=== PATIENT | female | born 1965 | race Caucasian/White ===

== ENCOUNTER 2017-11-10 06:56 | Day surgery (SDC) | payer BC, MEDICARE ==
[~2017-11-10 06:56] MED LIST: Lactated Ringers 1,000 ML IV SCH; Lidocaine 1%/Sod Bicarbonate in NS 8.4% 1 ML Syringe IDERM PRN; Sodium Chloride 0.9% 10 ML Syringe FLUSH PRN
[2017-11-10] MEDS ORDERED: Lactated Ringers 0 ML ONE (07:24)
[2017-11-10] MEDS ORDERED: Propofol 200 MG/20 ML SDV ONE (07:24)
[2017-11-10] MEDS ORDERED: Ondansetron 4 MG/2 ML SDV ONE (07:24)
[2017-11-10] MEDS ORDERED: ceFAZolin 1 GM Vial ONE (07:24)
[2017-11-10] MEDS ORDERED: fentaNYL 250 MCG/5 ML SDV ONE (07:25)
[2017-11-10] MEDS ORDERED: Lidocaine 1% 4 ML ONE (07:25)
[2017-11-10] MEDS ORDERED: Dexamethasone 4 MG/ML 5 ML MDV ONE (07:25)
[2017-11-10] MEDS ORDERED: Midazolam 1 MG/ML 2 ML SDV ONE (07:25)
[2017-11-10] MEDS ORDERED: Bupivacaine 0.25% 10 ML SDV ONE (07:34)
--- NOTE | 2017-11-10 07:39 | PCM.PREANE ---
Preanesthetic Assessment - Anesthesia/Transfusion/Family Hx Anesthesia History: Prior Anesthesia Without Reaction Family History of Anesthesia Reaction: No - Review of Systems General: No Symptoms Pulmonary: Cough (Occasional, nonproductive) Cardiovascular: No Symptoms Gastrointestinal: No Symptoms Neurological: Other (Back pain chronic.) Other: Reports: Thyroid Problems, Anxiety - Physical Assessment NPO Status Date: 11/09/17 NPO Status Time: 18:30 Pulse: 92 O2 Sat by Pulse Oximetry: 95 Respiratory Rate: 16 Blood Pressure: 118/90 Temperature: 36.3 C Weight: 91.626 kg ASA Class: 2 Mental Status: Alert & Oriented x3 Airway Class: Mallampati = 2 Dentition: Reports: Normal Dentition, Caries Thyro-Mental Finger Breadths: 3 Mouth Opening Finger Breadths: 3 ROM/Head Extension: Full Lungs: Clear to Auscultation, Normal Respiratory Effort Cardiovascular: Regular Rate, Regular Rhythm - Imaging/EKG Impressions: SR 95bpm - Allergies Allergies/Adverse Reactions: Allergies Allergy/AdvReac Type Severity Reaction Status Date / Time latex Allergy Rash Verified 11/09/17 16:42 - Acknowledgements Anesthesia Type Planned: General Anesthesia Pt an Appropriate Candidate for the Planned Anesthesia: Yes Alternatives and Risks of Anesthesia Discussed w Pt/Guardian: Yes Pt/Guardian Understands and Agrees with Anesthesia Plan: Yes PreAnesthesia Questionnaire HEENT History: Reports: Impaired Vision Other HEENT History: bruxism, wears glasses, dysphagia Cardiovascular History: Reports: High Cholesterol, SOB on Exertion Other Respiratory History: Moderate Snoring Gastrointestinal History: Reports: Chronic Constipation, GERD, Irritable Bowel Syndrome, Other (See Below) Other Gastrointestinal History: gastroparesis, dysphagia Genitourinary History: Reports: None LAWYER CRIMINAL History: Reports: None, Polycystic Ovaries Musculoskeletal History: Reports: Back Pain, Chronic, Osteoarthritis, Other ( See Below) Other Musculoskeletal History: lumbar strain and tear, dupytrens contracture Neurological History: Other Neuro History: Upper extrem. tremors Psychiatric History: Reports: Anxiety, Panic Attack Other Psychiatric History: Opioid Contract X 6 yrs. - Chronic Pain Patient Endocrine/Metabolic History: Reports: Hypothyroidism, Obesity/BMI 30+ Hematologic History: Reports: None Immunologic History: Reports: None Oncologic (Cancer) History: Reports: Uterine Dermatologic History: Reports: None - Past Surgical History Head Surgeries/Procedures: Reports: None HEENT Surgical History: Reports: Eye Surgery, Naso-Sinus Surgery Cardiovascular Surgical History: Reports: None Respiratory Surgical History: Reports: None GI Surgical History: Reports: EGD Female Surgical History: Reports: Hysterectomy, Oophorectomy Male Surgical History: Reports: None Endocrine Surgical History: Reports: None Neurological Surgical History: Reports: None Musculoskeletal Surgical History: Reports: None Dermatological Surgical History: Reports: None - SUBSTANCE USE Smoking Status *Q: Former Smoker Tobacco Use Within Last Twelve Months: Cigarettes Second Hand Smoke Exposure: Yes Days Per Week of Alcohol Use: 0 Number of Drinks Per Day: 1 Total Drinks Per Week: 0 Recreational Drug Use History: No - HOME MEDS Home Medications: Home Meds Simvastatin [Zocor] 20 mg PO BEDTIME 12/18/13 [History] traMADol HCl [Ultram] 1 - 2 tab PO Q6H PRN 12/18/13 [History] Metoclopramide HCl [Reglan] 5 mg PO BID 12/25/13 [History] Aspirin 81 mg PO DAILY 02/23/16 [History] Cyclobenzaprine [Flexeril] 10 mg PO Q8H PRN 02/23/16 [History] PARoxetine [Paxil] 20 mg PO DAILY 02/23/16 [History] busPIRone [Buspar] 5 mg PO DAILY 02/23/16 [History] diphenhydrAMINE HCl [Diphenhydramine HCl] 50 mg PO BEDTIME 02/23/16 [History] Esomeprazole Magnesium [Nexium] 40 mg PO DAILY 03/23/16 [History] Levothyroxine 125 mcg PO DAILY 06/22/16 [History] Cholecalciferol (Vitamin D3) [Vitamin D3] 2,000 unit PO DAILY 11/09/17 [History] Chrom Brooke/Brindal Vora [Garcinia Cambogia Tablet] 1 tab PO DAILY 11/09/17 [ History] Docusate Sodium [Stool Softener] 100 mg PO DAILY 11/09/17 [History] Multivitamin [Poly-Vitamin] 1 tab PO DAILY 11/09/17 [History] Polyethylene Glycol 3350 [MiraLAX] 17 g PO DAILY 11/09/17 [History] Vitamin E 400 unit PO DAILY 11/09/17 [History] - CURRENT (IN HOUSE) MEDS Current Meds: Current Medications Lactated Ringer's (Ringers, Lactated) 1,000 mls @ 125 mls/hr IV ASDIRECTED DAMIAN Stop: 11/10/17 23:00 Lidocaine/Sodium Bicarbonate (Buffered Lidocaine 1% In Ns 8.4%) 0.25 ml IDERM ONETIME PRN PRN Reason: Prior to IV Start Stop: 11/10/17 18:00 Sodium Chloride (Saline Flush) 10 ml FLUSH ASDIRECTED PRN PRN Reason: Keep Vein Open Stop: 11/10/17 18:00 Discontinued Medications Bupivacaine HCl (Sensorcaine-Mpf 0.25%) Confirm Administered Dose 10 ml .ROUTE .STK-MED ONE Stop: 11/10/17 07:35 Cefazolin Sodium (Ancef) Confirm Administered Dose 2 gm .ROUTE .STK-MED ONE Stop: 11/10/17 07:25 Dexamethasone (Dexamethasone) Confirm Administered Dose 20 mg .ROUTE .STK-MED ONE Stop: 11/10/17 07:26 Fentanyl (Sublimaze) Confirm Administered Dose 250 mcg .ROUTE .STK-MED ONE Stop: 11/10/17 07:26 Lactated Ringer's (Ringers, Lactated) Confirm Administered Dose 1,000 mls @ as directed .ROUTE .STK-MED ONE Stop: 11/10/17 07:25 Lidocaine HCl (Xylocaine-Mpf 1%) Confirm Administered Dose 4 mls @ as directed .ROUTE .STK-MED ONE Stop: 11/10/17 07:26 Midazolam HCl (Versed 1 Mg/Ml) Confirm Administered Dose 2 mg .ROUTE .STK-MED ONE Stop: 11/10/17 07:26 Ondansetron HCl (Zofran) Confirm Administered Dose 4 mg .ROUTE .STK-MED ONE Stop: 11/10/17 07:25 Propofol (Diprivan 20 Ml) Confirm Administered Dose 400 mg .ROUTE .STK-MED ONE Stop: 11/10/17 07:25
[2017-11-10] MEDS ORDERED: Metoclopramide 10 MG/2 ML SDV ONE (07:55)
[2017-11-10] MEDS ORDERED: diphenhydrAMINE 50 MG/ML SDV IVPUSH PRN (09:19)
[2017-11-10] MEDS ORDERED: fentaNYL 100 MCG/2 ML SDV IVPUSH PRN (09:19)
[2017-11-10] MEDS ORDERED: Ondansetron 4 MG/2 ML SDV IVPUSH PRN (09:19)
[2017-11-10] MEDS ORDERED: HYDROmorphone 0.5 MG/0.5 ML Syringe ONE (09:24)
[2017-11-10] MEDS ORDERED: Ketorolac 30 MG/ML SDV ONE (09:33)
--- NOTE | 2017-11-10 09:45 | PCM.POSTAN ---
POST ANESTHESIA ASSESSMENT - MENTAL STATUS Mental Status: Somnolent - VITAL SIGNS Pulse Rate: 110 SaO2: 96 Resp Rate: 9 Blood Pressure: 109/66 Temperature: 36.4 C - RESPIRATORY Respiratory Status: Respiratory Rate WNL, Airway Patent, O2 Saturation Stable, Supplemental Oxygen - CARDIOVASCULAR CV Status: Pulse Rate WNL, Blood Pressure Stable - GASTROINTESTINAL GI Status: No Symptoms - PAIN Pain Score: 0 - POST OP HYDRATION Hydration Status: Adequate & Stable
[2017-11-10 11:21] VITALS: BP 108/62
--- NOTE | 2017-11-10 12:29 | PCM48HPAN ---
Post Anesthesia Note - EVALUATION WITHIN 48HRS OF ANESTHETIC Vital Signs in Normal Range: Yes Patient Participated in Evaluation: Yes Respiratory Function Stable: Yes Airway Patent: Yes Cardiovascular Function Stable: Yes Hydration Status Stable: Yes Pain Control Satisfactory: Yes Nausea and Vomiting Control Satisfactory: Yes Mental Status Recovered: Yes
--- NOTE | 2017-11-10 17:48 | OR ---
DATE OF OPERATION: 11/10/2017 SURGEON: Fransico Jorge MD PREOPERATIVE DIAGNOSIS: Right-hand palmar fibromatosis, Dupuytren's disease. POSTOPERATIVE DIAGNOSIS: Right-hand palmar fibromatosis, Dupuytren's disease. OPERATION PERFORMED: Right-hand subtotal fasciectomy. DIRECTOR OF VOLUNTEER SERVICES: . INDICATION: The patient is a pleasant 52-year-old female with symptomatic palmar fibromatosis of the right hand and causing pain and slight contracture of the MP joint. We discussed both conservative as well as surgical treatment. The patient verbalized understanding and wished to proceed with surgery. DESCRIPTION OF PROCEDURE: The patient was brought to the operating room, underwent general anesthetic. Right upper extremity was prepped and draped in standard orthopedic fashion. Surgical pause was performed identifying the appropriate patient and appropriate extremity to be operated upon. Preoperative antibiotics given. A Syed style incision was made over the proximal aspect of the ring finger. Sharp dissection was carried through skin and subcutaneous tissue. Hemostasis was obtained. Dissected proximally to Delvalle's cardinal line and identified the junction between the normal palmar fascia and diseased fascia. Primarily involved the ring finger but did a transversal arch of the long finger. We identified the neurovascular bundle, radial and on to the ring finger. We then divided the fascia proximally and released the anterior-posterior fibers all the way down to the level of the MP joint. The entire cord was removed completely. We evaluated and irrigated the ulnar and radial aspect of the incision to make sure there was no additional disease. We irrigated the wounds thoroughly. Closed the skin with 5-0 nylon. She was placed in a soft dressing and brought to recovery in satisfactory condition. PLAN: We will see her back in 10 to 12 days. She does have smoking history. If the wound does not look like it heals, we will leave the Surgicel now for 14 days . ANESTHESIA: ESTIMATED BLOOD LOSS: MMODAL /[id number]
== END 2017-11-10 11:20 | disposition home or self-care (01) ==
LOC: JD.SDS 06:56
PROVIDERS: ATTEND Orthopaedic Surgery
DX: M72.0 Palmar fascial fibromatosis [Dupuytren] (principal); E78.5 Hyperlipidemia, unspecified; E03.9 Hypothyroidism, unspecified; F41.9 Anxiety disorder, unspecified; G89.29 Other chronic pain; M54.9 Dorsalgia, unspecified; K21.9 Gastro-esophageal reflux disease without esophagitis; E66.9 Obesity, unspecified; Z87.891 Personal history of nicotine dependence; Z91.040 Latex allergy status; Z79.82 Long term (current) use of aspirin; Z79.899 Other long term (current) drug therapy; Z68.38 Body mass index [BMI] 38.0-38.9, adult
CPT/HCPCS: 26123; 87641; 93005; J0690; J1100; J1170; J1885; J2250; J2405; J2765; J3010; J7120; J2704

== ENCOUNTER 2018-08-03 12:20 | Emergency (ER) | payer BC, MEDICARE ==
--- NOTE | 2018-08-03 14:24 | EDM.PDOC ---
ED HPI GENERAL MEDICAL PROBLEM - General Chief Complaint: Lower Extremity Injury/Pain Stated Complaint: RIGHT ANKLE INJURY Time Seen by Provider: 08/03/18 13:27 Source of Information: Reports: Patient, RN Notes Reviewed - History of Present Illness INITIAL COMMENTS - FREE TEXT/NARRATIVE: 53-year-old female slipped on ice suffered inversion injury right ankle. She heard a pop. She has severe pain with any attempt at weightbearing. No other pain or injury. The pain is primarily the lateral aspect of the ankle. Right Ankle Pain Score (Numeric/FACES): 2 - Related Data Allergies Allergy/AdvReac Type Severity Reaction Status Date / Time latex Allergy Rash Verified 08/03/18 13:21 Home Meds: Home Meds Simvastatin [Zocor] 20 mg PO BEDTIME 12/18/13 [History] traMADol HCl [Ultram] 1 - 2 tab PO Q6H PRN 12/18/13 [History] Metoclopramide HCl [Reglan] 5 mg PO BID 12/25/13 [History] Aspirin 81 mg PO DAILY 02/23/16 [History] Cyclobenzaprine [Flexeril] 10 mg PO Q8H PRN 02/23/16 [History] PARoxetine [Paxil] 20 mg PO DAILY 02/23/16 [History] busPIRone [Buspar] 5 mg PO DAILY 02/23/16 [History] diphenhydrAMINE HCl [Diphenhydramine HCl] 50 mg PO BEDTIME 02/23/16 [History] Esomeprazole Magnesium [Nexium] 40 mg PO DAILY 03/23/16 [History] Levothyroxine 125 mcg PO DAILY 06/22/16 [History] Cholecalciferol (Vitamin D3) [Vitamin D3] 2,000 unit PO DAILY 11/09/17 [History] Chrom Brooke/Brindal Vora [Garcinia Cambogia Tablet] 1 tab PO DAILY 11/09/17 [ History] Docusate Sodium [Stool Softener] 100 mg PO DAILY 11/09/17 [History] Multivitamin [Poly-Vitamin] 1 tab PO DAILY 11/09/17 [History] Polyethylene Glycol 3350 [MiraLAX] 17 g PO DAILY 11/09/17 [History] Vitamin E 400 unit PO DAILY 11/09/17 [History] Past Medical History HEENT History: Reports: Impaired Vision Other HEENT History: bruxism, wears glasses, dysphagia Cardiovascular History: Reports: High Cholesterol, SOB on Exertion Other Respiratory History: Moderate Snoring Gastrointestinal History: Reports: Chronic Constipation, GERD, Irritable Bowel Syndrome, Other (See Below) Other Gastrointestinal History: gastroparesis, dysphagia Genitourinary History: Reports: None PROGRESSIVE CARE NURSE History: Reports: None, Polycystic Ovaries Musculoskeletal History: Reports: Back Pain, Chronic, Osteoarthritis, Other ( See Below) Other Musculoskeletal History: lumbar strain and tear, dupytrens contracture Other Neuro History: Upper extrem. tremors Psychiatric History: Reports: Anxiety, Panic Attack Other Psychiatric History: Opioid Contract X 6 yrs. - Chronic Pain Patient Endocrine/Metabolic History: Reports: Hypothyroidism, Obesity/BMI 30+ Hematologic History: Reports: None Immunologic History: Reports: None Oncologic (Cancer) History: Reports: Uterine Dermatologic History: Reports: None - Past Surgical History Head Surgeries/Procedures: Reports: None HEENT Surgical History: Reports: Eye Surgery, Naso-Sinus Surgery Cardiovascular Surgical History: Reports: None Respiratory Surgical History: Reports: None GI Surgical History: Reports: EGD Female Surgical History: Reports: Hysterectomy, Oophorectomy Endocrine Surgical History: Reports: None Neurological Surgical History: Reports: None Dermatological Surgical History: Reports: None Social & Family History - Tobacco Use Smoking Status *Q: Current Every Day Smoker Years of Tobacco use: 25 Packs/Tins Daily: 0.5 - Caffeine Use Caffeine Use: Reports: Coffee, Soda - Recreational Drug Use Recreational Drug Use: No Review of Systems - Review of Systems Review Of Systems: See Below Mouth/Throat: Reports: No Symptoms Respiratory: Denies: Shortness of Breath, Hemoptysis GI/Abdominal: Denies: Abdominal Pain, Nausea, Vomiting Musculoskeletal: Reports: Joint Pain Skin: Reports: No Symptoms (Right ankle) Neurological: Reports: No Symptoms ED EXAM, GENERAL - Physical Exam Exam: See Below General Appearance: Alert, Moderate Distress Head: Atraumatic Neck: Supple Respiratory/Chest: No Respiratory Distress, Lungs Clear, Normal Breath Sounds Cardiovascular: Regular Rate, Rhythm Extremities: Joint Swelling (Right lateral ankle), Other (Tender right lateral ankle, foot nontender, remainder of leg nontender) Neurological: Alert, Oriented, No Motor/Sensory Deficits ED TRAUMA EXTREMITY PROCEDURES - Splinting Right Lower Extremity Splint Site: R short leg Pre-Procedure NV Status: Normal Post-Procedure NV Status: Normal Splint Material: Velcro Splint Design: Posterior Applied & Form Fitted By: Provider Provider Post-Splint Application NV Check: NV Status Normal Course - Vital Signs Last Recorded V/S: Last Vital Signs Temp 98.3 F 08/03/18 14:50 Pulse 82 08/03/18 14:50 Resp 16 08/03/18 14:50 BP 118/74 08/03/18 14:50 Pulse Ox 95 08/03/18 14:50 - Re-Assessments/Exams Free Text/Narrative Re-Assessment/Exam: 08/03/18 14:20 X-ray shows hairline fracture distal fibula at about the ankle joint level, nondisplaced. Posterior fiberglass splint has been applied. She has crutches. Discharge instructions as documented. Departure - Departure Time of Disposition: 14:21 Disposition: Home, Self-Care 01 Condition: Fair Clinical Impression: Fibula fracture Qualifiers: Encounter type: initial encounter Fibula location: lateral malleolus Fracture type: closed Fracture alignment: nondisplaced Laterality: right Qualified Code(s ): S82.64XA - Nondisplaced fracture of lateral malleolus of right fibula, initial encounter for closed fracture - Discharge Information Instructions: Ankle Fracture Referrals: Rigoberto Kay PA-C [Primary Care Provider] - Forms: ED Department Discharge Additional Instructions: Short leg splint, keep splint dry, rest and elevate leg as much as possible, you may take Tylenol or ibuprofen 2-3 times daily, you may take tramadol in between doses for further pain relief as needed, use crutches, try keep nonweightbearing as best you can, follow-up with Dr. Escalona or Dr. Sow today later next week, call for appointment.
--- NOTE | 2018-08-03 14:27 | CR ---
Right ankle: Four views of the right ankle were obtained. Comparison: No prior ankle exam. Slightly displaced lateral malleolus fracture is seen. Very minimal fracture within the posterior malleolus is noted. Medial malleolus appears to be intact. Soft tissue swelling is noted. No additional abnormality is seen. Impression: 1. Fractures as noted above. 2. Soft tissue swelling. Diagnostic code #3
[2018-08-03 16:05] VITALS: BP 118/74
== END 2018-08-03 14:50 | disposition home or self-care (01) ==
LOC: JD.ED 12:20
DX: S82.64XA Nondisplaced fracture of lateral malleolus of right fibula, initial encounter for closed fracture (principal); F17.210 Nicotine dependence, cigarettes, uncomplicated; E78.00 Pure hypercholesterolemia, unspecified; F41.9 Anxiety disorder, unspecified; K21.9 Gastro-esophageal reflux disease without esophagitis; Z79.899 Other long term (current) drug therapy; Z79.82 Long term (current) use of aspirin; Z91.040 Latex allergy status; W00.0XXA Fall on same level due to ice and snow, initial encounter
CPT/HCPCS: 29515; 73610-26-RT; 73610-RT; 99284-25

== ENCOUNTER 2024-07-17 06:42 | Day surgery (SDC) | payer MEDICARE ==
[~2024-07-17 06:42] MED LIST changes: +HYDROmorphone 0.5 MG/0.5 ML Syringe IVPUSH PRN; -Lactated Ringers 1,000 ML IV SCH; -Lidocaine 1%/Sod Bicarbonate in NS 8.4% 1 ML Syringe IDERM PRN; +Ondansetron 4 MG/2 ML SDV IVPUSH PRN; +Sodium Chloride 0.9% 10 ML Syringe FLUSH SCH; +fentaNYL 100 MCG/2 ML SDV IVPUSH PRN
[2024-07-17] MEDS ORDERED: Propofol 200 MG/20 ML SDV ONE ×2 (06:56→07:46)
[2024-07-17] MEDS: Lactated Ringers 1,000 ML IV SCH (07:05)
[2024-07-17 09:19] VITALS: BP 120/77; PULSE 88
== END 2024-07-17 08:51 | disposition home or self-care (01) ==
LOC: JD.SDS 06:42
PROVIDERS: ATTEND Surgery
DX: Z12.11 Encounter for screening for malignant neoplasm of colon (principal); D12.5 Benign neoplasm of sigmoid colon; K57.30 Diverticulosis of large intestine without perforation or abscess without bleeding; K21.9 Gastro-esophageal reflux disease without esophagitis; E78.00 Pure hypercholesterolemia, unspecified; E03.9 Hypothyroidism, unspecified; Z91.040 Latex allergy status; Z79.82 Long term (current) use of aspirin; Z79.899 Other long term (current) drug therapy; Z79.84 Long term (current) use of oral hypoglycemic drugs; Z79.890 Hormone replacement therapy; Z86.0100 Personal history of colon polyps, unspecified
CPT/HCPCS: 45385; J2704; J7120; 00811; 45380